=== PATIENT | male | born 1975 | race Caucasian/White ===

== ENCOUNTER 2019-05-20 08:07 | Observation (INO) | payer BC, OTHER ==
[2019-05-20] MEDS ORDERED: MORPHINE 2 MG/ML SYR ONE (08:56)
[2019-05-20] MEDS ORDERED: FAMOTIDINE 20 MG/2 ML VIAL IV ONE (08:56)
[2019-05-20] MEDS ORDERED: ONDANSETRON 4 MG/2 ML VIAL ONE (08:56)
[2019-05-20] MEDS ORDERED: NA CHLORIDE 0.9% 2,000 ML ONE (08:56)
[2019-05-20 09:08] LABS: Protime INR 1.02
[2019-05-20 09:19] LABS: Urine Blood NEGATIVE (NEG); Urine Glucose NEGATIVE (NEG); Urine Protein NEGATIVE (NEG); Urine Specific Gravity 1.025 (1.005-1.030)
[2019-05-20 09:26] LABS: Potassium 4.1 mmol/L (3.5-5.1)
[2019-05-20 09:28] LABS: ALT/SGPT 55 U/L (12-78); AST/SGOT 21 U/L (15-37); Albumin 4.1 g/dL (3.4-5.0); Alkaline Phosphatase 60 U/L (45-117); Bilirubin Direct 0.2 mg/dL (0-0.2); Bilirubin Total 0.7 mg/dL (0.2-1.0); Lipase 65 U/L (73-393); Magnesium 1.7 mg/dL (1.8-2.4); Protein, Total 7.9 g/dL (6.4-8.2); Troponin (Emerg Dept Use Only) < 0.02 ng/mL (0.0-0.045)
[2019-05-20 10:02] LABS: Absolute Lymphocytes (CBC) 0.4 K/uL (0.7-4.9); Basophils % 0.1 % (0-1.3); Hematocrit 50.2 % (39.6-49.0); Lymphocytes % 4.6 % (15.3-44.8); MPV 8.7 fL (7.6-11.3); RBC Red Blood Cell Count 5.73 M/uL (4.33-5.43)
--- NOTE | 2019-05-20 10:20 | RAD REPORT ---
EXAM DESCRIPTION: RAD - Chest Single View - 05/20/2019 10:09 am CLINICAL HISTORY: PAIN Chest pain. COMPARISON: CHEST PA AND LAT 2 VIEW dated 12/05/2013 FINDINGS: Portable technique limits examination quality. The lungs are grossly clear. The heart is normal in size. No displaced fractures. IMPRESSION: No acute intrathoracic process suspected.
[2019-05-20] MEDS ORDERED: MAGNESIUM SULFATE 1 gm IVPB 1 GM/100 ML BAG IV ONE (10:23)
--- NOTE | 2019-05-20 10:28 | RAD REPORT ---
EXAM DESCRIPTION: CTAbdomen Pelvis W Contrast - 05/20/2019 10:02 am CLINICAL HISTORY: Abdominal pain. ABD PAIN COMPARISON: No comparisons TECHNIQUE: Biphasic CT imaging of the abdomen and pelvis was performed with 100 ml non-ionic IV cont rast. All CT scans are performed using dose optimization technique as appropriate and may include automated exposure control or mA/KV adjustment according to patient size. FINDINGS: The lung bases are clear. The liver demonstrates diffuse fatty infiltration. The spleen, pancreas, adrenal glands and kidneys a re within normal limits. 11 mm right renal cyst. No bowel obstruction, free air, free fluid or abscess. The appendix is normal. No evidence of signi ficant lymphadenopathy. No suspicious bony findings. IMPRESSION: No acute intra-abdominal or pelvic finding. Diffuse fatty liver.
--- NOTE | 2019-05-20 10:31 | EDPHYS ---
Physician Documentation [facility] Name: Aaron Soares Age: 43 yrs Sex: Male : 1975 Arrival Date: 05/20/2019 Time: 08:08 Bed 7 Private MD: Ray Ngo HPI: 05/20 08:45 This 43 yrs old Male presents to ER via Ambulatory with complaints of Flank marc Pain. 08:45 The patient complains of pain in the right mid back and right low back. marc 08:46 The patient presents with abdominal pain in the upper abdomen, in the right upper marc quadrant, abdominal distention in the upper abdomen, in the lower abdomen. Onset: The symptoms/episode began/occurred this morning. The pain does not radiate. Onset: The symptoms/episode began/occurred this morning. Modifying factors: The symptoms are alleviated by nothing. the symptoms are aggravated by nothing. Associated signs and symptoms: The patient has no apparent associated signs or symptoms. The symptoms do not radiate. Modifying factors: The symptoms are alleviated by nothing, the symptoms are aggravated by nothing. Historical: - Allergies: 08:12 No Known Allergies; aa5 - Home Meds: 08:12 None [Active]; aa5 - PMHx: 08:12 Asthma; aa5 - PSHx: 08:12 Hand Surgery; aa5 - Immunization history:: Adult Immunizations unknown. - Coronavirus screen:: The patient has NOT traveled to [place], [place], or [place] in the past 14 days. The patient has NOT had contact with known/suspected case of Coronavirus?. - Social history:: Smoking status: Patient reports the use of cigarette tobacco products, chewing tobacco. - Family history:: not pertinent. - Ebola Screening: : No symptoms or risks identified at this time. ROS: 08:46 Constitutional: Negative for fever, chills, and weight loss, Eyes: Negative for injury, marc pain, redness, and discharge, ENT: Negative for injury, pain, and discharge, Neck: Negative for injury, pain, and swelling, Cardiovascular: Negative for chest pain, palpitations, and edema, Respiratory: Negative for shortness of breath, cough, wheezing, and pleuritic chest pain, Back: Negative for injury and pain, : Negative for injury, bleeding, discharge, and swelling, MS/Extremity: Negative for injury and deformity, Skin: Negative for injury, rash, and discoloration, Neuro: Negative for headache, weakness, numbness, tingling, and seizure, Psych: Negative for depression, anxiety, suicide ideation, homicidal ideation, and hallucinations, Allergy/Immunology: Negative for hives, rash, and allergies, Endocrine: Negative for neck swelling, polydipsia, polyuria, polyphagia, and marked weight changes, Hematologic/Lymphatic: Negative for swollen nodes, abnormal bleeding, and unusual bruising. 08:46 Abdomen/GI: Positive for abdominal pain, abdominal cramps, of the right upper quadrant. Exam: 08:46 Constitutional: This is a well developed, well nourished patient who is awake, alert, marc and in no acute distress. Head/Face: Normocephalic, atraumatic. Eyes: Pupils equal round and reactive to light, extra-ocular motions intact. Lids and lashes normal. Conjunctiva and sclera are non-icteric and not injected. Cornea within normal limits. Periorbital areas with no swelling, redness, or edema. ENT: Nares patent. No nasal discharge, no septal abnormalities noted. Tympanic membranes are normal and external auditory canals are clear. Oropharynx with no redness, swelling, or masses, exudates, or evidence of obstruction, uvula midline. Mucous membranes moist. Neck: Trachea midline, no thyromegaly or masses palpated, and no cervical lymphadenopathy. Supple, full range of motion without nuchal rigidity, or vertebral point tenderness. No Meningismus. Chest/axilla: Normal chest wall appearance and motion. Nontender with no deformity. No lesions are appreciated. Cardiovascular: Regular rate and rhythm with a normal S1 and S2. No gallops, murmurs, or rubs. Normal PMI, no JVD. No pulse deficits. Respiratory: Lungs have equal breath sounds bilaterally, clear to auscultation and percussion. No rales, rhonchi or wheezes noted. No increased work of breathing, no retractions or nasal flaring. Back: No spinal tenderness. No costovertebral tenderness. Full range of motion. Male : Normal genitalia with no discharge or lesions. Skin: Warm, dry with normal turgor. Normal color with no rashes, no lesions, and no evidence of cellulitis. MS/ Extremity: Pulses equal, no cyanosis. Neurovascular intact. Full, normal range of motion. Neuro: Awake and alert, GCS 15, oriented to person, place, time, and situation. Cranial nerves II-XII grossly intact. Motor strength 5/5 in all extremities. Sensory grossly intact. Cerebellar exam normal. Normal gait. Psych: Awake, alert, with orientation to person, place and time. Behavior, mood, and affect are within normal limits. 08:46 Abdomen/GI: Inspection: abdomen appears normal, Bowel sounds: normal, Palpation: mild abdominal tenderness, in the right upper quadrant, Liver: is firm, Hernia: not appreciated. 08:48 Musculoskeletal/extremity: DVT Exam: No signs of deep vein thrombosis. no pain, no marc swelling, no tenderness, negative Homans' sign noted on exam, no appreciated bluish discoloration, no erythema, no increased warmth. Vital Signs: 08:13 BP 116 / 82; Pulse 128; Resp 18 S; Temp 98.7(O); Pulse Ox 98% on R/A; Weight 118.84 kg aa5 (R); Height 6 ft. 0 in. (182.88 cm) (R); Pain 6/10; 10:32 BP 82 / 63; Pulse 118; Resp 22 S; Temp 100.4(O); Pulse Ox 98% on R/A; aa5 11:16 BP 111 / 79; Pulse 97; Resp 22 S; Pulse Ox 100% on R/A; aa5 11:34 BP 109 / 71; Pulse 97; Resp 22; Temp 102.5(O); Pulse Ox 97% on R/A; mh5 12:24 BP 102 / 66; Pulse 99; Resp 18 S; Temp 98.9(O); Pulse Ox 97% on R/A; aa5 08:13 Body Mass Index 35.53 (118.84 kg, 182.88 cm) [facility] MDM: 08:[address] [facility] 08:48 Data reviewed: vital signs, nurses notes, lab test result(s), EKG, radiologic studies, [facility] CT scan, plain films, ultrasound. 05/20 08:45 Order name: Basic Metabolic Panel; Complete Time: 09:30 [facility] 05/20 08:45 Order name: CBC with Diff; Complete Time: 11:10 [facility] 05/20 08:45 Order name: LFT's; Complete Time: 09:30 [facility] 05/20 08:45 Order name: Magnesium; Complete Time: 09:30 [facility] 05/20 08:45 Order name: NT PRO-BNP; Complete Time: 09:30 [facility] 05/20 08:45 Order name: PT-INR; Complete Time: 09:30 [facility] 05/20 08:45 Order name: Troponin (emerg Dept Use Only); Complete Time: 09:30 [facility] 05/20 08:45 Order name: Lipase; Complete Time: 09:30 [facility] 05/20 08:45 Order name: Urine Culture [facility] 05/20 08:49 Order name: Urine Dipstick--Ancillary (enter results); Complete Time: 09:30 05/20 10:06 Order name: CBC Smear Scan; Complete Time: 11:10 [facility] 05/20 10:33 Order name: Lactate; Complete Time: 12:46 [facility] 05/20 10:33 Order name: Blood Culture Adult (2) [facility] 05/20 10:33 Order name: Flu; Complete Time: 12:46 [facility] 05/20 08:45 Order name: XRAY Chest (1 view); Complete Time: 10:29 [facility] 05/20 08:45 Order name: US Abdomen Limited [facility] 05/20 08:48 Order name: CT Abd/Pelvis - IV Contrast Only; Complete Time: 10:29 [facility] 05/20 10:39 Order name: Stool Culture [facility] 05/20 10:39 Order name: Fecal Leukocyte Stain [facility] 05/20 10:57 Order name: Strep; Complete Time: 12:46 [facility] 05/20 11:31 Order name: Throat Culture [facility] 05/20 08:45 Order name: EKG; Complete Time: 08:46 [facility] 05/20 08:45 Order name: Cardiac monitoring; Complete Time: 08:46 [facility] 05/20 08:45 Order name: EKG - Nurse/Tech; Complete Time: 09:10 [facility] 05/20 08:45 Order name: IV Saline Lock; Complete Time: 08:46 [facility] 05/20 08:45 Order name: Labs collected and sent; Complete Time: 08:46 [facility] 05/20 08:45 Order name: O2 Per Protocol; Complete Time: 08:47 [facility] 05/20 08:45 Order name: O2 Sat Monitoring; Complete Time: 08:47 [facility] 05/20 08:48 Order name: Urine Dipstick-Ancillary (obtain specimen); Complete Time: 08:47 iw 05/20 08:59 Order name: Labs - recollect needed: recollect cbc; Complete Time: 09:14 bd Administered Medications: 09:09 Drug: morphine 2 mg Route: IVP; Site: left upper arm; em 09:45 Follow up: Response: No adverse reaction; Marked relief of symptoms; Pain is decreased aa5 09:10 Drug: NS 0.9% 1000 ml Route: IV; Rate: 1 bolus; Site: left upper arm; em 11:24 Follow up: IV Status: Completed infusion; IV Intake: 1000ml aa5 09:10 Drug: Pepcid 20 mg Route: IVP; Site: left upper arm; em 09:20 Follow up: Response: No adverse reaction aa5 09:10 Drug: Zofran 4 mg Route: IVP; Site: left upper arm; em 09:20 Follow up: Response: No adverse reaction aa5 09:11 Drug: NS 0.9% 1000 ml Route: IV; Rate: 1 bolus; Site: left upper arm; em 11:25 Follow up: IV Status: Completed infusion; IV Intake: 1000ml aa5 10:24 Drug: Magnesium Sulfate 1 grams Route: IVPB; Infused Over: 1 hrs; Site: left upper arm; bp 11:24 Follow up: IV Status: Completed infusion aa5 10:57 Drug: NS 0.9% 1000 ml Route: IV; Rate: 1 bolus; Site: left upper arm; aa5 12:25 Follow up: IV Status: Completed infusion; IV Intake: 1000ml aa5 10:57 Drug: GI Cocktail without - (Maalox Suspension 30 ml, Lidocaine Liquid 2 % 15 aa5 ml) Route: PO; 12:00 Follow up: Response: No adverse reaction; Marked relief of symptoms aa5 10:57 Drug: Tylenol 1000 mg Route: PO; aa5 12:25 Follow up: Response: No adverse reaction; Temperature is decreased aa5 11:40 Drug: Rocephin 2 grams Route: IV; Rate: per protocol; Site: left upper arm; aa5 11:45 Follow up: Response: No adverse reaction aa5 11:45 Drug: Flagyl 500 mg Volume: 100 ml; Route: IVPB; Rate: 200 ml/hr; Infused Over: 30 aa5 mins; Site: left upper arm; 12:15 Follow up: Response: No adverse reaction; IV Status: Completed infusion aa5 Disposition: 05/20/19 10:39 Hospitalization ordered by Marquez Kyle for Inpatient Admission. Preliminary diagnosis are Fever, unspecified, Vomiting, Diarrhea, unspecified, Hypotension, Weakness. - Bed requested for Telemetry/MedSurg (Inpatient). - Status is Inpatient Admission. em - Condition is Fair. - Problem is new. - Symptoms have improved. UTI on Admission? No Signatures: Dispatcher [employer] [facility] Josefina Ladd Corey, MD MD cha Munoz, Edgar, RN RN em Teagan Urbina RN RN iw Vesta Anderson RN RN aa5 Carson Kevin RN RN bp Corrections: (The following items were deleted from the chart) 08:50 08:46 Stone Protocol+CT.RAD.BRZ ordered. [facility] 10:33 10:30 05/20/2019 10:30 Discharged to Home. Impression: Abdominal tenderness; Vomiting; marc Diarrhea, unspecified; Hypomagnesemia. Condition is Stable. Discharge Instructions: Abdominal Pain, Adult, Food Choices to Help Relieve Diarrhea, Adult, Diarrhea, Adult, Nausea and Vomiting, Adult, Nausea and Vomiting, Adult, [id number], Abdominal Pain, Adult, Ijif-[id number], Diarrhea, Adult, [id number]-rv-[id number]. Prescriptions for Bentyl 20 mg Oral Tablet - take 1 tablet by ORAL route every 6 hours As needed; 20 tablet, Pepcid 20 mg Oral Tablet - take 1 tablet by ORAL route every 12 hours for 10 days; 20 tablet, Zofran 4 mg Oral Tablet - take 1 tablet by ORAL route every 12 hours As needed; 20 tablet. and Forms are Medication Reconciliation Form, Thank You Letter, Antibiotic Education, Prescription Opioid Use. Follow up: Private Physician; When: 2 - 3 days; Reason: Recheck today's complaints, Continuance of care, Re-evaluation by your physician. Problem is new. Symptoms have improved. marc 10:40 10:39 Hospitalization Ordered by Jan Handy DO for Inpatient Admission. Preliminary marc diagnosis is Fever, unspecified; Vomiting; Diarrhea, unspecified; Hypotension; Weakness. Bed requested for Telemetry/MedSurg (Inpatient). Status is Inpatient Admission. Condition is Fair. Problem is new. Symptoms have improved. UTI on Admission? No. marc 12:22 10:40 05/20/2019 10:39 Hospitalization Ordered by Marquez Kyle MD for Inpatient bd Admission. Preliminary diagnosis is Fever, unspecified; Vomiting; Diarrhea, unspecified; Hypotension; Weakness. Bed requested for Telemetry/MedSurg (Inpatient). Status is Inpatient Admission. Condition is Fair. Problem is new. Symptoms have improved. UTI on Admission? No. [facility] 14:12 12:22 05/20/2019 10:39 Hospitalization Ordered by Marquez Kyle MD for Inpatient em Admission. Preliminary diagnosis is Fever, unspecified; Vomiting; Diarrhea, unspecified; Hypotension; Weakness. Bed requested for Telemetry/MedSurg (Inpatient). Status is Inpatient Admission. Condition is Fair. Problem is new. Symptoms have improved. UTI on Admission? No. bd
--- NOTE | 2019-05-20 10:31 | ER ---
Nurse's Notes [facility] Name: Aaron Soares Age: 43 yrs Sex: Male : 1975 Arrival Date: 05/20/2019 Time: 08:08 Bed 7 Private MD: Diagnosis: Fever, unspecified;Vomiting;Diarrhea, unspecified;Hypotension;Weakness Presentation: 05/20 08:12 Presenting complaint: Patient states: right flank pain with nausea/vomiting/diarrhea aa5 that began today around 0600. Denies difficulty urinating. 08:12 Transition of care: patient was not received from another setting of care. Onset of aa5 symptoms was May 20, 2019. Risk Assessment: Do you want to hurt yourself or someone else? Patient reports no desire to harm self or others. Initial Sepsis Screen: Does the patient meet any 2 criteria? HR > 90 bpm. Does the patient have a suspected source of infection? Yes: Other: N/V/D. Care prior to arrival: None. 08:12 Acuity: ABRAHAM 3 aa5 08:12 Method Of Arrival: Ambulatory aa5 Historical: - Allergies: 08:12 No Known Allergies; aa5 - Home Meds: 08:12 None [Active]; aa5 - PMHx: 08:12 Asthma; aa5 - PSHx: 08:12 Hand Surgery; aa5 - Immunization history:: Adult Immunizations unknown. - Coronavirus screen:: The patient has NOT traveled to [place], [place], or [place] in the past 14 days. The patient has NOT had contact with known/suspected case of Coronavirus?. - Social history:: Smoking status: Patient reports the use of cigarette tobacco products, chewing tobacco. - Family history:: not pertinent. - Ebola Screening: : No symptoms or risks identified at this time. Screenin:13 Abuse screen: Denies threats or abuse. Nutritional screening: No deficits noted. aa5 Tuberculosis screening: No symptoms or risk factors identified. Fall Risk None identified. Assessment: 08:10 General: Appears uncomfortable, Behavior is calm, cooperative. Pain: Complains of pain aa5 in right flank Pain does not radiate. Pain currently is 6 out of 10 on a pain scale. Quality of pain is described as pressure, Pain began this morning Is continuous. Neuro: Level of Consciousness is awake, alert, obeys commands, Oriented to person, place, time, situation. Cardiovascular: Heart tones S1 S2 present Rhythm is regular. Respiratory: Airway is patent Respiratory effort is even, unlabored, Respiratory pattern is regular, symmetrical. GI: Abdomen is round non-distended, Bowel sounds present X 4 quads. Abd is soft and non tender X 4 quads. Reports diarrhea, nausea, vomiting, Patient currently denies bloody stool. : Denies inability to void. EENT: No signs and/or symptoms were reported regarding the EENT system. Derm: Skin is pink, warm \\T\\ dry. Musculoskeletal: Range of motion: intact in all extremities. 09:19 Reassessment: Patient is alert, oriented x 3, equal unlabored respirations, skin aa5 warm/dry/pink. Patient states feeling better. Patient states symptoms have improved. Denies nausea at this time. . 09:20 Reassessment: Pt taken to US. aa5 09:28 Reassessment: Pt back from US . aa5 10:26 Reassessment: PT RETURNED FROM CT, PLACED BACK ON MONITOR. bp 10:35 Reassessment: Patient is alert, oriented x 3, equal unlabored respirations, skin aa5 warm/dry/pink. Pt states "I can't swallow pills, my mouth is so dry". Tylenol will be crushed for administration. Pt appears uncomfortable. Pt c/o MD estefani was notified. . 10:50 Reassessment: Flu swab sent to lab, 1st set of blood cultures sent to lab . aa5 11:03 Reassessment: Strep swab completed and sent to lab . aa5 11:13 Reassessment: Lab at bedside attempting to collect lactate and 2nd set of blood aa5 cultures. 11:13 Reassessment: Patient is alert, oriented x 3, equal unlabored respirations, skin aa5 warm/dry/pink. 11:13 Reassessment: Pt states "I just have heartburn that's it" . General: Appears aa5 uncomfortable. 12:00 Reassessment: Patient is alert, oriented x 3, equal unlabored respirations, skin aa5 warm/dry/pink. Pt reports heartburn has improved. . 12:24 Reassessment: Pt to restroom at this time. Will attempt to have bowel movement for aa5 stool specimen collection. . 12:35 Reassessment: Patient is alert, oriented x 3, equal unlabored respirations, skin aa5 warm/dry/pink. Pt unable to provide stool specimen at this time. . 13:40 Reassessment: Patient is alert, oriented x 3, equal unlabored respirations, skin aa5 warm/dry/pink. Patient states feeling better. Patient states symptoms have improved. Pt ambulatory to restroom at this time.. 13:44 Reassessment: Report given to STEVE Agarwal. aa5 13:55 Reassessment: Stool specimen sent to lab by plant maintenance technician . aa5 Vital Signs: 08:13 BP 116 / 82; Pulse 128; Resp 18 S; Temp 98.7(O); Pulse Ox 98% on R/A; Weight 118.84 kg aa5 (R); Height 6 ft. 0 in. (182.88 cm) (R); Pain 6/10; 10:32 BP 82 / 63; Pulse 118; Resp 22 S; Temp 100.4(O); Pulse Ox 98% on R/A; aa5 11:16 BP 111 / 79; Pulse 97; Resp 22 S; Pulse Ox 100% on R/A; aa5 11:34 BP 109 / 71; Pulse 97; Resp 22; Temp 102.5(O); Pulse Ox 97% on R/A; mh5 12:24 BP 102 / 66; Pulse 99; Resp 18 S; Temp 98.9(O); Pulse Ox 97% on R/A; aa5 08:13 Body Mass Index 35.53 (118.84 kg, 182.88 cm) aa5 ED Course: 08:08 Patient arrived in ED. rg4 08:10 Arm band placed on Patient placed in an exam room, on a stretcher. aa5 08:10 Patient has correct armband on for positive identification. Bed in low position. Call aa5 light in reach. Side rails up X 1. Adult w/ patient. Pulse ox on. NIBP on. 08:12 Ray Silva MD is Attending Physician. marc 08:17 Vesta Anderson, RN is Primary Nurse. aa5 08:19 Triage completed. aa5 09:09 Inserted saline lock: 22 gauge in left upper arm, using aseptic technique. em 09:22 EKG done, by therapy tech. reviewed by Ray Silva MD. at1 09:29 US Abdomen Limited In Process Unspecified. EDMS 10:02 CT Abd/Pelvis - IV Contrast Only In Process Unspecified. EDMS 10:08 XRAY Chest (1 view) In Process Unspecified. EDMS 10:38 Jan Handy DO is Hospitalizing Provider. marc 10:40 Marquez Kyle MD is Hospitalizing Provider. marc 10:50 Missed attempt(s): 24 gauge in left wrist. Bleeding controlled, band aid applied, aa5 catheter tip intact. 10:50 First set of blood cultures drawn by me. aa5 11:20 Second set of blood cultures drawn by lab staff. aa5 12:38 Stool Culture Sent. mh5 12:38 Fecal Leukocyte Stain Sent. mh5 12:38 STOOL SPEC. 5 14:00 No provider procedures requiring assistance completed. Patient admitted, IV remains in aa5 place. Administered Medications: 09:09 Drug: morphine 2 mg Route: IVP; Site: left upper arm; em 09:45 Follow up: Response: No adverse reaction; Marked relief of symptoms; Pain is decreased aa5 09:10 Drug: NS 0.9% 1000 ml Route: IV; Rate: 1 bolus; Site: left upper arm; em 11:24 Follow up: IV Status: Completed infusion; IV Intake: 1000ml aa5 09:10 Drug: Pepcid 20 mg Route: IVP; Site: left upper arm; em 09:20 Follow up: Response: No adverse reaction aa5 09:10 Drug: Zofran 4 mg Route: IVP; Site: left upper arm; em 09:20 Follow up: Response: No adverse reaction aa5 09:11 Drug: NS 0.9% 1000 ml Route: IV; Rate: 1 bolus; Site: left upper arm; em 11:25 Follow up: IV Status: Completed infusion; IV Intake: 1000ml aa5 10:24 Drug: Magnesium Sulfate 1 grams Route: IVPB; Infused Over: 1 hrs; Site: left upper arm; bp 11:24 Follow up: IV Status: Completed infusion aa5 10:57 Drug: NS 0.9% 1000 ml Route: IV; Rate: 1 bolus; Site: left upper arm; aa5 12:25 Follow up: IV Status: Completed infusion; IV Intake: 1000ml aa5 10:57 Drug: GI Cocktail without - (Maalox Suspension 30 ml, Lidocaine Liquid 2 % 15 aa5 ml) Route: PO; 12:00 Follow up: Response: No adverse reaction; Marked relief of symptoms aa5 10:57 Drug: Tylenol 1000 mg Route: PO; aa5 12:25 Follow up: Response: No adverse reaction; Temperature is decreased aa5 11:40 Drug: Rocephin 2 grams Route: IV; Rate: per protocol; Site: left upper arm; aa5 11:45 Follow up: Response: No adverse reaction aa5 11:45 Drug: Flagyl 500 mg Volume: 100 ml; Route: IVPB; Rate: 200 ml/hr; Infused Over: 30 aa5 mins; Site: left upper arm; 12:15 Follow up: Response: No adverse reaction; IV Status: Completed infusion aa5 Intake: 11:24 IV: 1000ml; Total: 1000ml. aa5 11:25 IV: 1000ml; Total: 2000ml. aa5 12:25 IV: 1000ml; Total: 3000ml. aa5 Outcome: 10:30 Discharge ordered by . [facility] 10:39 Decision to Hospitalize by Provider. [facility] 13:44 Admitted to Med/surg accompanied by tech, family with patient, via wheelchair, with aa5 chart, Report called to STEVE Agawral 13:44 Condition: stable 13:44 Instructed on the need for admit, Demonstrated understanding of instructions. 14:00 Patient left the ED. aa5 Signatures: Dispatcher [employer] Ray Preciado MD MD cha Munoz, Edgar, RN Vesta Flores RN RN aa5 Felicita Isbell, lei maker EKG Tat1 Rhona Loya rg4 Anita León Carson Mackenzie, RN RN bp Corrections: (The following items were deleted from the chart) 11:16 11:13 BP 82 / 63; Pulse 118bpm; Resp 22bpm; Spontaneous; Pulse Ox 98% RA; Temp 100.4F aa5 Oral; aa5 11:18 10:35 Reassessment: Patient is alert, oriented x 3, equal unlabored respirations, skin aa5 warm/dry/pink. Pt states "I can't swallow pills, my mouth is so dry". Tylenol will be crushed for administration. . aa5 11:38 11:34 Pulse 97bpm; Resp 22bpm; Pulse Ox 97% RA; Temp 102.5F Oral; mh5 mh5 14:14 14:12 Patient left the ED. em aa5 14:15 12:24 Temp 98.9F Oral; aa5 aa5 15:43 13:40 Reassessment: Patient is alert, oriented x 3, equal unlabored respirations, skin aa5 warm/dry/pink. Pt ambulatory to restroom at this time.. aa5
[2019-05-20] MEDS ORDERED: ACETAMINOPHEN 500 MG TAB ONE (10:38)
[2019-05-20] MEDS ORDERED: NA CHLORIDE 0.9% 1,000 ML ONE (10:38)
[2019-05-20 10:45] LABS: Blood Morphology Comment NOT SEEN (NOT SEEN); Platelet Estimate ADEQ; Urine White Blood Cell Casts OK
[2019-05-20] MEDS ORDERED: MAGNE/ALUM HYDROXD 30 ML UCUP ONE (11:00)
[2019-05-20] MEDS ORDERED: LIDOCAINE VISCOUS 2% SOLN 15 ML UDC ONE (11:01)
[2019-05-20] MEDS ORDERED: METRONIDAZOLE 500mg IVPB 500 MG/100 ML BAG IV ONE (11:37)
[2019-05-20] MEDS ORDERED: CEFTRIAXONE/SWI 1gm 2 GM/20 ML SYR ONE (11:37)
--- NOTE | 2019-05-20 12:25 | EKG ---
Test Date: 2019-05-20 Test Time: 09:18:59 Body Presser: IMAN MEASUREMENT RESULTS: Intervals: Rate: 113 HI: 162 QRSD: 84 QT: 320 QTc: 438 [place]: P: 54 HI: 162 QRS: 41 T: 42 INTERPRETIVE STATEMENTS: Sinus tachycardia Otherwise normal ECG Compared to ECG 09/15/2015 00:54:18 Sinus bradycardia no longer present Early repolarization no longer present Electronically Signed On 05-20-19 12:24:25 PURCHASING ASSOCIATE by Milton Richmond
[2019-05-20] MEDS ORDERED: HYDROCODONE/APAP 7.5/325 MG TAB PO PRN (14:01)
[2019-05-20] MEDS ORDERED: MORPHINE 2 MG/ML SYR IV PRN (14:01)
[2019-05-20] MEDS ORDERED: ONDANSETRON 4 MG/2 ML VIAL IV PRN (14:01)
[2019-05-20 14:11] VITALS: BMI 35.2
[2019-05-20] MEDS: D5.45NS W/KCL 20MEQ 1,000 ML IV SCH (14:55)
[2019-05-20] MEDS: METRONIDAZOLE 500mg IVPB 500 MG/100 ML BAG IV SCH (16:34)
[2019-05-20] MEDS: ACETAMINOPHEN 500 MG TAB PO PRN (16:36)
[2019-05-20] MEDS ORDERED: Ringers Lactate 500 ML IV ONE (17:56)
[2019-05-20] MEDS ORDERED: Ringers Lactate 1,000 ML IV ONE (18:04)
[2019-05-20] MEDS ORDERED: IBUPROFEN 600 MG TAB PO PRN (18:08)
[2019-05-20] MEDS ORDERED: IBUPROFEN 200 MG TAB PO PRN (19:00)
--- NOTE | 2019-05-20 21:32 | HP ---
Date of Admission: 05/20/2019 Chief Complaint: Nausea, vomiting, generalized malaise. History Of Present Illness: The patient is a 43-year-old male with past medical history of blood cary t in the lung in 2009, who comes in with generalized malaise of 1 day duration. The patient also rep orts nausea, vomiting, unable to go to work today due to generalized weakness, comes in for further e valuation. His symptoms are constant, moderate, progressively worsening. Denies any ill contacts. No well water use. No travel outside the country or unusual foods. The patient's workup revealed a normal white blood cell count. His magnesium was 1.7. Lactate was elevated at 3. Lipase was normal . UA was negative. CT scan of the abdomen and pelvis showed no intraabdominal pelvic finding, does show an 11 mm right renal cyst. His chest x-ray was clear. Influenza screen was negative. Patient was given IV fluids. His magnesium was replaced. He did have hypotension. He was then referred for admission. When seen in the ER, he was awake, alert, and oriented x3, in some mild distress. The p atient also reports pain in the right lower quadrant, nonradiating. Past Medical History: Blood clot in the lung in 2009. Past Surgical History: Left hand trauma from machinery. Allergies: NO KNOWN DRUG ALLERGIES. Medications: None. Social History: Patient is a former smoker. Currently chews tobacco. Occasional alcohol use. No i llicit drug use. Lives at home. . Family History: Father has diabetes as is the brother. Mother has heart disease. Review of Systems: Ten-point system reviewed, negative except as per HPI. Physical Examination: Vital Signs: Pulse 128, blood pressure 116/82, respirations 18, temperature 98.7, O2 98% on room air , blood pressure did drop in the 90s systolic. BMI is 35.3. General: Awake, alert, and oriented x3, in some mild distress due to pain. Ill-appearing obese male . HEENT: Normocephalic, atraumatic. PERRLA. EOMI. Dry mucous membranes. Oropharynx is clear. Norm al dentition. Conjunctivae are anicteric. Neck: Supple. No JVD. Trachea midline. CV: S1, S2. Sinus tachycardia. Peripheral pulses present. Respiratory: Clear to auscultation bilaterally. No wheezing or stridor. Gastrointestinal: Abdomen is soft, tenderness to palpation in the right lower quadrant. No rebound or guarding. Positive bowel sounds. Extremities: No clubbing, cyanosis, or edema. No calf tenderness. Neuro: Cranial nerves 2 through 12 intact grossly. No focal neurological deficits. Speech is rola l. Laboratory Data: UA is negative. Sodium 139, potassium 4.1, chloride 107, CO2 of 23, BUN 20, creati nine 1.15, glucose 136, lactate 3, calcium 8.8, magnesium 1.7. Troponin less than 0.02. Lipase 65. INR 1.02. WBC 8.6, H and H 17.3 and 50.2, platelets 171, neutrophils 90%. Influenza screen is nega tive. Streptococcus screen negative. Throat culture is pending. Imaging Studies: Chest x-ray shows no acute intrathoracic process, reviewed personally. CT scan of the abdomen shows no acute intraabdominal or pelvic finding, shows diffuse fatty liver, 11 mm right r enal cyst. Assessment: A 43-year-old male with, 1.Right lower quadrant abdominal pain, unclear etiology. No appendicitis on CT scan. We will obtai n abdominal ultrasound may be related to gastroenteritis. 2.Intractable nausea and vomiting. We will continue with antiemetics, keep on clear liquid diet for now. Follow up with abdominal ultrasound, may be viral versus bacterial gastroenteritis. GI evalua tion if not improving. 3.Hypomagnesemia, replaced. 4.Acute hypotension, likely secondary to above. Patient does have elevated lactate and is tachycard ic may be developing sepsis. We will replace and monitor. 5.Metabolic acidosis. We will continue with IV fluids and repeat lactate in 2 hours, rule out devel oping systemic inflammatory response syndrome or sepsis. 6.Nicotine dependence with chewing tobacco, counseled. 7.Obesity. 8.Fatty liver disease. Patient counseled, he understands that untreated fatty liver disease may res ult in chronic liver damage and may even lead to cirrhosis requiring transplant and/or . 9.An 11 mm right renal cyst. Continue serial imaging studies, benign. Plan: Admit patient to Med-Surg, place as inpatient, length of stay greater than 2 midnights. /ALICIA Voice ID: [id number]
--- NOTE | 2019-05-20 21:56 | CON ---
Date of Consultation: 05/20/2019 Brief History Of Present Illness: Patient is a 43-year-old male who presents to the hospital with ab dominal pain beginning earlier this morning. He states the pain is located in the epigastrium with r adiation to the right side of his abdomen and right lower quadrant as well as right upper quadrant. He has never had similar episodes before in the past. It was associated with profuse nausea, vomitin g, and watery diarrhea. He only ate [employer] meat yesterday. He denies any sick contacts, recent travel , no new food exposures. He is unaware of any other aggravating, alleviating factors. He has never had similar episodes before in the past. He feels febrile, weak drawn. He says the urine was more c oncentrated and but has been lightening up since being brought to the hospital. His pain level signi ficantly better since being here in the hospital and has essentially minimal pain, but more soreness on the right mid to lower quadrant. At this point, there is no additional radiation. He is taking l iquids at this point without significant change in symptoms other than when he takes some liquids, he has profuse diarrhea, he states shortly thereafter. Past Medical History: Negative. Past Surgical History: He had left hand surgery for a traumatic injury. Allergies: NO KNOWN DRUG ALLERGIES. Medications: He only takes [id number] acid pills for GERD. Social History: He denies smoking, alcohol, or recreational drug use. Family History: Diabetes, hypertension. Review of Systems: A 10-point review of systems, he admits to fever, chills, weakness. Otherwise as in HPI. Physical Examination: Vital Signs: At time of my examination, his temperature is 102.6, his heart rate was 98, respiratory rate 18, blood pressure 138/67, SpO2 98% on room air. General: He is awake, alert, oriented. Psychiatric: Appropriate. Conversive. HEENT: Normocephalic. Sclerae icteric. Mucous is moist. Oropharynx clear. Neck: Supple. No JVD. Chest: Normal expansion and excursion. Cardiovascular: Regular rate and rhythm. Pulmonary: Clear to auscultation bilaterally. Abdomen: Soft with mild global tenderness to palpation worse in the right mid to lower quadrant. Th ere is negative Hanna sign. No rebound. No guarding. No focal peritonitis. No hernias appreciate d. No skin changes. Extremities: No clubbing, cyanosis, edema. In upper extremity, he has a well-healed laceration on h is left hand from surgery. Laboratory Data: He had laboratory exam which reveals which reveals white blood cell count of 8.6, h emoglobin is 17.3 over hematocrit of 50.2, neutrophils of 90%. His coags showed a PT 12.0, INR 1.02. Chemistry showed a sodium 139, potassium 4.1, chloride 107, carbon-dioxide 23, BUN 20, creatinine 1 .1, glucose is 136. Lactic acid is 3.0, now 1.7 on second check. Magnesium 1.7. Total bilirubin 0. 7, direct component 0.2, AST 20, ALT 55, alkaline phosphatase is 60. Troponin less than 0.012. ProB CHANNEL MAN is 24. His lipase is 65. His UA is essentially negative. He had imaging performed which included a chest x-ray and CT abdomen and pelvis, both officially said no acute injury at this time and no acute intraabdominal or pelvic finding and diffuse fatty liver. The appendix was specifically mentioned as normal. Assessment And Plan: This is a 43-year-old male who comes in with abdominal pain of uncertain etiolo gy. 1.IV fluid hydration. 2.Serial abdominal exams. 3.Continue workup. 4.Continue medical management. I do not find the patient has a surgical abdomen at this time. However, I will continue serial abdominal exams and follow along with you. SOBEIDA/ALICIA Voice ID: [id number] Report ID: [id number]
[2019-05-21] MEDS: D5.45NS W/KCL 20MEQ 1,000 ML IV SCH ×4 (00:29→22:01)
[2019-05-21] MEDS: METRONIDAZOLE 500mg IVPB 500 MG/100 ML BAG IV SCH ×3 (00:29→16:21)
[2019-05-21 04:20] LABS: Absolute Lymphocytes (CBC) 0.6 K/uL (0.7-4.9); Basophils % 0.3 % (0-1.3); Hematocrit 41.8 % (39.6-49.0); Lymphocytes % 11.8 % (15.3-44.8); MPV 8.5 fL (7.6-11.3); RBC Red Blood Cell Count 4.68 M/uL (4.33-5.43)
[2019-05-21 04:43] LABS: Albumin 2.7 g/dL (3.4-5.0); Bilirubin Total 0.8 mg/dL (0.2-1.0); Magnesium 1.7 mg/dL (1.8-2.4); Potassium 3.5 mmol/L (3.5-5.1); Protein, Total 5.7 g/dL (6.4-8.2)
[2019-05-21] MEDS ORDERED: POTASSIUM CL SA 10 MEQ TAB PO ONE (07:30)
[2019-05-21] MEDS ORDERED: MAGNESIUM SULFATE 1 gm IVPB 1 GM/100 ML BAG IV ONE (07:30)
[2019-05-21] MEDS: CEFTRIAXONE/SWI 1gm 1 GM/10 ML SYR IV SCH (08:23)
[2019-05-21] MEDS: ENOXAPARIN 40 MG/0.4 ML SQ SCH (08:24)
--- NOTE | 2019-05-21 15:19 | P.PN ---
Subjective Date of Service: 05/21/19 Subjective: Improving (patient continues to have diarrhea, pain has resolved, feels much better) Physical Examination - Vital Signs Temperature: 97.6 F Blood Pressure: 113/70 Pulse: 62 Respirations: 18 Pulse Ox (%): 95 - Physical Exam General: Alert, In no apparent distress, Cooperative Gastrointestinal: Soft and benign, Non-distended, No ascites, No tenderness, No masses, No rebound, No guarding - Studies Microbiology Data (last 24 hrs): 05/20/19 11:03 Throat Group A Streptococcus Rapid Screen - Final 05/20/19 10:50 Nasopharnyx Influenza Type A Antigen Screen - Final 05/20/19 10:50 Nasopharnyx Influenza Type B Antigen Screen - Final Assessment And Plan - Current Problems (Diagnosis) (1) Enteritis Current Visit: Yes Status: Acute Plan: Continue medical managmenet and supportive care electrolyte correction will sign off, call with any new issues
[2019-05-21] MEDS ORDERED: CEPACOL LOZENGES PO PRN (15:49)
[2019-05-21 16:07] LABS: C.diff Antigen/Toxin Ag neg : Tox neg (NEG : NEG)
[2019-05-21] MEDS ORDERED: POTASSIUM PHOS 20 MM in NA CHLORIDE 0.9% 500 ML IV ONE (17:00)
[2019-05-21] MEDS ORDERED: CEPACOL LOZENGES PO ONE (17:00)
--- NOTE | 2019-05-21 17:41 | P.PN ---
Subjective Date of Service: 05/21/19 Patient is complaining of sore throats today. He still reports generalized weakness. Fever up to 102 recorded last night. No nausea or vomiting or diarrhea. He denies abdominal pain. Physical Examination - Vital Signs Temperature: 97.6 F Blood Pressure: 128/69 Pulse: 66 Respirations: 18 Pulse Ox (%): 95 - Physical Exam General: Alert, In no apparent distress, Oriented x3 HEENT: Normocephalic, Mucous membr. moist/pink Neck: Supple, JVD not distended Respiratory: Clear to auscultation bilaterally, Normal air movement Cardiovascular: No edema, Regular rate/rhythm, Normal S1 S2 Capillary refill: <2 Seconds Gastrointestinal: Normal bowel sounds, Soft and benign, Non-distended, No tenderness Musculoskeletal: No swelling, No erythema Integumentary: No rashes Neurological: Normal speech, Normal strength at 5/5 x4 extr Assessment And Plan - Current Problems (Diagnosis) (1) Acute viral syndrome Current Visit: Yes Status: Acute (2) Hypocalcemia Current Visit: Yes Status: Acute (3) Enteritis Current Visit: Yes Status: Acute - Plan Continue supportive measures with IV hydration. Cultures: no growth to date Empiric IV Rocephin Calcium replacement Phosphorus replacement Pain management as needed General surgery -Dr. Jorge input appreciated. Monitor for 1 more day
[2019-05-21] MEDS: CALCIUM CARBONATE 500 MG TAB PO SCH (22:07)
[2019-05-22] MEDS: METRONIDAZOLE 500mg IVPB 500 MG/100 ML BAG IV SCH ×2 (00:31→09:14)
[2019-05-22] MEDS: D5.45NS W/KCL 20MEQ 1,000 ML IV SCH ×3 (00:32→09:08)
[2019-05-22 00:43] VITALS: O2SAT 94
[2019-05-22 04:20] LABS: Absolute Lymphocytes (CBC) 1.4 K/uL (0.7-4.9); Basophils % 0.4 % (0-1.3); Lymphocytes % 29.3 % (15.3-44.8); RBC Red Blood Cell Count 4.47 M/uL (4.33-5.43)
[2019-05-22 04:44] LABS: Bilirubin Total 0.5 mg/dL (0.2-1.0); Magnesium 2.3 mg/dL (1.8-2.4); Potassium 4.1 mmol/L (3.5-5.1); Protein, Total 6.1 g/dL (6.4-8.2)
[2019-05-22] MEDS: ENOXAPARIN 40 MG/0.4 ML SQ SCH (09:00)
[2019-05-22] MEDS: CEFTRIAXONE/SWI 1gm 1 GM/10 ML SYR IV SCH (09:14)
[2019-05-22] MEDS: ACETAMINOPHEN 500 MG TAB PO PRN (09:14)
[2019-05-22] MEDS: CALCIUM CARBONATE 500 MG TAB PO SCH (09:14)
[2019-05-22 12:08] VITALS: BP 105/67; TEMP 97.1
--- NOTE | 2019-05-22 13:30 | P.DS ---
Admission Date: 05/20/19 Discharge Date: 05/22/19 Disposition: ROUTINE DISCHARGE Discharge Condition: GOOD - Problems (1) Acute viral syndrome Current Visit: Yes Status: Acute (2) Hypocalcemia Current Visit: Yes Status: Acute (3) Enteritis Current Visit: Yes Status: Acute (4) Renal cyst Current Visit: Yes Status: Acute Brief History of Present Illness: 43-year-old gentleman with a prior history of pulmonary embolism presented to the ED with a complaint of generalized weakness and malaise, episodes of nausea and vomiting and diarrhea as well as abdominal pain. His lactic acid was elevated in the ED. CT abdomen and pelvis was unremarkable except small right renal cyst. The patient was placed under observation for further management. Hospital Course: Patient was treated with supportive measures including IV hydration. He was also placed on IV antibiotics for enteritis. He developed electrolyte abnormalities including hypocalcemia and hypophosphatemia which were replaced. He also had an episode of fever and short. His symptoms correlate with acute viral syndrome. Lactic acid normal lives with supportive measures. He was seen and evaluated by general surgery and no further recommendations were made. Stool culture yielded no significant growth. Patient clinically improved within 48 hr of hospitalization. He was up and ambulating without difficulty. He is discharged with oral antibiotics for possible enteritis. Noted patient has a renal cyst which need to be followed as an outpatient. Vital Signs/Physical Exam: Temp Pulse Resp BP Pulse Ox 97.1 F 52 14 105/67 94 05/22/19 12:00 05/22/19 12:00 05/22/19 12:00 05/22/19 12:00 05/22/19 12:00 General: Alert, In no apparent distress, Oriented x3 HEENT: Mucous membr. moist/pink, Sclerae nonicteric Neck: Supple, JVD not distended Respiratory: Clear to auscultation bilaterally, Normal air movement Cardiovascular: No edema, Regular rate/rhythm, Normal S1 S2 Gastrointestinal: Normal bowel sounds, Soft and benign, Non-distended, No tenderness Musculoskeletal: No swelling, No tenderness Integumentary: No rashes, No erythema Neurological: Normal speech, Normal strength at 5/5 x4 extr Laboratory Data at Discharge: WBC 4.9 K/uL (4.3-10.9) 05/22/19 03:34 Hgb 13.7 g/dL (13.6-17.9) 05/22/19 03:34 Hct 40.0 % (39.6-49.0) 05/22/19 03:34 Plt Count 118 K/uL (152-406) L 05/22/19 03:34 PT 12.0 SECONDS (9.5-12.5) 05/20/19 08:50 INR 1.02 05/20/19 08:50 Sodium 147 mmol/L (136-145) H 05/22/19 03:34 Potassium 4.1 mmol/L (3.5-5.1) 05/22/19 03:34 BUN 5 mg/dL (7-18) L 05/22/19 03:34 Creatinine 0.94 mg/dL (0.55-1.3) 05/22/19 03:34 Glucose 131 mg/dL (74-106) H 05/22/19 03:34 Phosphorus 1.0 mg/dL (2.5-4.9) L 05/21/19 04:00 Magnesium 2.3 mg/dL (1.8-2.4) D 05/22/19 03:34 Total Bilirubin 0.5 mg/dL (0.2-1.0) 05/22/19 03:34 AST 19 U/L (15-37) 05/22/19 03:34 ALT 33 U/L (12-78) 05/22/19 03:34 Alkaline Phosphatase 35 U/L (45-117) L 05/22/19 03:34 Lipase 65 U/L (73-393) L 05/20/19 08:50 Home Medications: Calcium Carbonate [Oscal*] 500 mg PO BID #4 tab 05/22/19 Ciprofloxacin HCl [Cipro 500 MG Tablet] 500 mg PO BID #6 tab 05/22/19 metroNIDAZOLE [Flagyl] 500 mg PO Q8H #9 tablet 05/22/19 New Medications: Calcium Carbonate [Oscal*] 500 mg PO BID #4 tab Ciprofloxacin HCl [Cipro 500 MG Tablet] 500 mg PO BID #6 tab metroNIDAZOLE [Flagyl] 500 mg PO Q8H #9 tablet Diet: Regular Activity: Ad nadiya
--- NOTE | 2019-05-29 13:14 | RAD REPORT ---
EXAM DESCRIPTION: US - Abdomen Exam Limited - 05/20/2019 9:29 am CLINICAL HISTORY: Abdominal pain. COMPARISON: None. FINDINGS: The gallbladder wall is not thickened. A gallstone is not seen. The biliary tree is normal caliber. IMPRESSION: Unremarkable gallbladder ultrasound.
== END 2019-05-22 14:05 | disposition home or self-care (01) ==
LOC: ER 08:07 → INTOOBSV 11:35 → ERHOLD 11:35 → 4TH 13:53
PROVIDERS: ADMIT Family Medicine; ATTEND Family Medicine
DX: B34.9 Viral infection, unspecified (principal); E83.51 Hypocalcemia; K52.9 Noninfective gastroenteritis and colitis, unspecified; N28.1 Cyst of kidney, acquired; E83.39 Other disorders of phosphorus metabolism; F17.220 Nicotine dependence, chewing tobacco, uncomplicated; E87.2 Acidosis; E66.9 Obesity, unspecified; Z68.35 Body mass index [BMI] 35.0-35.9, adult
CPT/HCPCS: 96365; 96367; 96361; 93005; 87040 ×2; 87070; 87088; 87045; 85025 ×3; 80048; 36415 ×2; 83735 ×3; 89055; 84100; 85610; 80076; 87046; 87081; 83605 ×2; 81003; 87324; 84484; 83690; 80053 ×2; 83880; 87449; 87804 ×2; 74177; 71045; 76705; 94760 ×4; 96375; 99285; Q9967; J3475 ×2; J2270; J0696 ×3; J7120; J7040; J7030 ×2; J2405; G0378 ×4; 87086; J1650